=== PATIENT | male | born 1960 | race African-American/Black ===

== ENCOUNTER 2019-07-24 19:04 | Inpatient (IN) | payer BC ==
[~2019-07-24] VITALS: Ht 160 cm; Wt 59.9 kg
--- NOTE | 2019-07-24 19:16 | NUR ---
Pt brought in by ambulance. pt awake, tracks with eyes, nonverbal. [facility] staff states that patient has had cough and congestion for approx 3 days. Staff states non-verbal is normal mentation for patient. Pt Has been afebrile, no nausea, vomiting, diarrhea, no shortness of breath or chest pain. Pt resting comfortably in ED bed, no acute distress at this time.
--- NOTE | 2019-07-24 19:16 | NUR ---
Patient to ER bed 01 to gown for evaluation. Side rails up.
[2019-07-24 19:17] VITALS: BP_SYST 114
--- NOTE | 2019-07-24 20:40 | NUR ---
ER at bedside examining patient.
[2019-07-24] MEDS ORDERED: NACL 0.9% 1,000 ML IV ONE (20:56)
[2019-07-24 21:20] LABS: BASOPHILS % (AUTO) 0.8 % (0.0-2.0); EOSINOPHILS # (AUTO) 0.2 K/uL (0.0-0.4); HEMATOCRIT 41.2 % (36-54); HEMOGLOBIN 13.3 g/dL (14.0-18.0); LYMPHOCYTES # (AUTO) 2.1 K/uL (1.0-5.5); LYMPHOCYTES % (AUTO) 39.7 % (20.5-51.5); MEAN CORPUSCULAR HEMOGLOBIN 30 pg (27-31); MEAN CORPUSCULAR HGB CONC 32 % (32-36); MEAN CORPUSCULAR VOLUME 93 fL (79.0-98.0); MONOCYTES # (AUTO) 0.5 K/uL (0.0-1.0); MONOCYTES % (AUTO) 9.6 % (1.7-9.3); NEUTROPHILS # (AUTO) 2.5 K/uL (1.8-7.7); NEUTROPHILS % (AUTO) 46.9 % (40.0-70.0); PLATELET COUNT (AUTO) 300 K/uL (130-430); RED BLOOD CELL COUNT(AUTO) 4.42 MIL/uL (4.2-6.2); RED CELL DISTRIBUTION WIDTH 13.7 % (9.0-15.0); WHITE BLOOD COUNT (AUTO) 5.3 K/uL (4.8-10.8)
--- NOTE | 2019-07-24 21:30 | NUR ---
Pt resting in ED bed comfortably. No acute distress noted.
[2019-07-24 21:53] LABS: INR 3.6 (0.80-1.20)
[2019-07-24 22:19] LABS: CALCIUM 8.9 mg/dL (8.4-11.0); CREATININE 0.62 mg/dL (0.55-1.30); POTASSIUM 3.6 mmol/L (3.5-5.1)
[2019-07-24 22:25] LABS: ALBUMIN 3.2 g/dL (3.4-4.8); TOTAL BILIRUBIN 0.3 mg/dL (0.0-1.0)
--- NOTE | 2019-07-24 23:05 | NUR ---
# 16 FR In and Out catheter with use of sterile technique. Immediate return of 10 ml Dark brown urine noted. Urine sample collected and sent to lab. Pt tolerated procedure well. Patient unable to toilet self.
[2019-07-25 00:27] LABS: BILIRUBIN,URINE 1+ (NEGATIVE); BLOOD, URINE 3+ (NEGATIVE); CLARITY/URINE CLEAR (CLEAR); COLOR,URINE YELLOW (YELLOW); GLUCOSE,URINE NEGATIVE (NEGATIVE); KETONES,URINE NEGATIVE (NEGATIVE); LEUKOCYTE ESTERASE ,URINE NEGATIVE (NEGATIVE); NITRITE, URINE NEGATIVE (NEGATIVE); PH,URINE 5.5 (5.0-8.0); PROTEIN URINE 1+ (NEGATIVE)
[2019-07-25] MEDS ORDERED: MULT-1100 PO (00:27)
[2019-07-25] MEDS ORDERED: SENN8.6T19 PO (00:28)
[2019-07-25] MEDS ORDERED: WARF1TAB2 PO (00:31)
[2019-07-25] MEDS ORDERED: [UNRECOGNIZED DRUG - CODE] PO (00:34)
[2019-07-25 00:38] LABS: BACTERIA,URINE FEW /HPF (None Seen); RBC,URINE 50-80 /HPF (0-3); WBC,URINE 50-80 /HPF (0-3)
--- NOTE | 2019-07-25 00:48 | NUR ---
Pt resting in ED bed comfortably. No acute distress.
--- NOTE | 2019-07-25 01:33 | NUR ---
Pt Resting in ED bed. bedside re-examining the patient
--- NOTE | 2019-07-25 02:00 | NUR ---
Pt resting in ED bed. No acute distress.
--- NOTE | 2019-07-25 04:00 | NUR ---
Pt taken to CT for head CT w\o contrast
--- NOTE | 2019-07-25 04:15 | NUR ---
Pt returned from CT
--- NOTE | 2019-07-25 04:22 | NUR ---
Patient will be admitted to care of . Admitted to M/S unit. Will go to room 103A. Belongings list completed. Complete and up to date summary report printed. SBAR report to be given at bedside with opportunity for questions.
--- NOTE | 2019-07-25 04:22 | NUR ---
Transfer to [facility]. IV present no sign or symptom of infiltration.
[2019-07-25 05:00] VITALS: BP_SYST 111
--- NOTE | 2019-07-25 05:00 | NUR ---
ADMISSION PHYSICAL ASSESSMENT NOTES; pt. admitted from ER ( from SNF) for cough and congestion x 4 days. DX UTI/Possible TIA, no acute distress, on room air, O2 sat 97%, all info taken from report and med records. pt. non verbal, open eyes occasionally. pt. contracted on both upper and lower extremities but pretty stiff on BLE. skin checked, no open sore. IV lock on left wrist area. pt. has jefferson cath connected to bedside, collected urine for test from ER, told nurse Justin to leave catheter for now. maintain bed rest, bed alarm on. no family member, unable to get hold per RN.
--- NOTE | 2019-07-25 05:24 | NUR ---
CONSULTATION PAGED/CALLED Reason for Consultation: NEURO Person Who was Notified: MANJEET Consulting Physician: Clinical Trials Nurse Specialty: Ordering Physician:
[2019-07-25] MEDS: NORMAL SALINE 5 ML DISP.SYRIN IVF SCH ×3 (06:00→20:52)
--- NOTE | 2019-07-25 06:33 | NUR ---
CLOSING NOTES; pt. condition observed. pt. eyes closed. resting. will endorse to day shift. for further care and observation. unable to use call light, frequent rounds. on fall risk precautions. incomplete information on admission.
[2019-07-25 07:52] LABS: INR 3.5 (0.80-1.20); PROTHROMBIN TIME 34.8 SECS (9.5-12.5)
[2019-07-25 08:00] VITALS: BP_SYST 109
--- NOTE | 2019-07-25 08:00 | NUR ---
Note Pt resting in bed with eyes closed. Opens eyes with light stimuli, no tracking observed at this time. IV in left wrist intact and patent. No SOB/resp distress or pain/discomfort noted at this time. Call light within reach. Pt's upper and lower extremities are contacted and stiff. Pt next to nurses' station for close observation.
[2019-07-25] MEDS: cefTRIAXone 1 GM in D5W 50 ML IV SCH (08:54)
--- NOTE | 2019-07-25 09:00 | NUR ---
Note Pt was assisted with his breakfast - mechanical soft diet. Pt's HOB was raised to 90'. Pt's IVPB antibiotic started at this time on left wrist IV site. No needs noted.
--- NOTE | 2019-07-25 09:35 | NUR ---
Nutrition Update Andrey Scale 9 noted. Pt admitted for UTI, r/o stroke. Diet: mechanical soft BMI: 23.6 kg/m2 RD to follow per nutrition care standards.
--- NOTE | 2019-07-25 11:50 | NUR ---
Note Pt resting in bed with eyes closed all shift. IV in left wrist intact and patent. No needs noted at this time. Frequent rounds done (q1' and PRN) for needs and care. Pt next to nurses' station for close observation for needs and care.
[2019-07-25 12:16] VITALS: BP_SYST 117
--- NOTE | 2019-07-25 14:19 | NUR ---
Wound Evaluation: Wound Consult ordered for Low Andrey Score. Patient evaluated for a low Andrey score of 9. Patient was awake, non-verbal, non-responsive to verbal commands, and received in a [place] Bed with an Isoflex DELLA mattress. Patient needs to be turned in bed. Recommend reposition patient every 2 hours with pillow support. Elevate, off-load and float bilateral heels with pillows. Offload pressure areas with pillows for pressure re-distribution. Perform skin care and monitor skin integrity Q shift. Use moisture barrier cream on moisture susceptible areas QID and PRN for soiling. Initiate low air-loss therapy.
--- NOTE | 2019-07-25 16:05 | NUR ---
Note Pt was evaluated by speech therapist for swallow evaluation. Pt did not pass. Pt to be kept NPO from this time on, till further time.
[2019-07-25 16:19] VITALS: BP_SYST 98
--- NOTE | 2019-07-25 16:19 | NUR ---
S.T. SWALLOW EVAL SWALLOW EVAL COMPLETED. PT PRESENTS W/ MOD-SEV PRE-ORAL, ORAL, AND PHARYNGEAL DYSPHAGIA W/ DECREASED BOLUS AWARENESS/NURSE BEHAVIORAL HEALTH [facility] AT TIMES, IMPAIRED BOLUS MANIPULATION AND TRANSFER, SEV DELAYED OR ABSENT SWALLOW INITIATION. PT IS AT HIGH RISK FOR ASPIRATION, MALNUTRITION, AND DEHYDRATION. REC: NPO - ALTERNATIVE METHOD FOR FEEDING. NURSE JOZEF NOTIFIED.
--- NOTE | 2019-07-25 18:20 | NUR ---
Note Pt resting in bed. Pt near nurses' station for close observation for needs and care. IV in left wrist intact and patent. Pt was checked on q1' and PRN all shift for needs and care. No needs noted at this time. No SOB/resp distress or pain/discomfort noted all shift. Pt had no coughing all shift. Lower extremities elevated. Call light within reach. Pt has been non verbal all shift.
[2019-07-25 19:00] VITALS: BP_SYST 144
[2019-07-25] MEDS ORDERED: cefTRIAXone 1 GM in D5W 50 ML IV SCH (19:00)
--- NOTE | 2019-07-25 19:15 | NUR ---
change of shift.pt.presents quiescent affect;calm,resting.pt.presents neuro posturing:decorticate.pt.presents affect; blunt;flat. pt.presents asphasic speech status:no verbal response.pt.presents iv access intact;patent;iv lock.call light/ telephone w/in reach of the pt.
[2019-07-25 20:00] VITALS: BP_SYST 134; BP_SYST 144
--- NOTE | 2019-07-25 20:00 | NUR ---
pt.assessed.v/s assessed;values w/in normal limits.per flacc pain mgx.pt absent facial grimaces/body posturing.pt.assessed for cleanliness.pt.repositioned.pt.submitted to swallow eval:07/25/19.failed the study.speech recommended nop.diet status ordered:npo. to be paged re;npo diet status/no active iv fluids.general status stable.respiratory status stable;unlabored; 02-sat%=96%@room air.call light/telephone placed w/in reach of the pt.
[2019-07-25] MEDS: SENNOSIDES 8.6 MG TABLET PO SCH (20:48)
--- NOTE | 2019-07-25 21:00 | NUR ---
retuened the page.i re-iterated to the drMelthe speech results:failed diet status npo;no active iv fluids. ordered; iv fluids;maintance;d5/45ns@60ml/hr.;gi consult;peg plalcement;satureday;07/26/19.
[2019-07-25] MEDS: D5/0.45 NS 1,000 ML IV SCH (21:53)
--- NOTE | 2019-07-25 22:00 | NUR ---
pt.assessed.pt.assessed for cleanliness.pt repositioned.i have initiated the administration iv fluids;d5/454ns.via peripheral line. general status stable.respiratory status stable.call light/telephone placed w/in reach of the pt.
--- NOTE | 2019-07-26 | NUR ---
pt.assessed.v/s assessed;values w/in normal limits.pt.assessed for cleanliness.pt.repositioned.iv acces intact;patent iv fluids infusing. per flacc;pain mgx;pt.absent facial grimaces/body posturing.general status stable.respiratory status stable.unlabored:02- sat% =96%.call light/telephone placed w/in reach of the pt.
[2019-07-26 01:04] VITALS: BP_SYST 114
--- NOTE | 2019-07-26 02:00 | NUR ---
pt.assessed.pt.presents quiescent affect;calm,somnolent.pt.assessed for cleanliness.pt.repositioned.iv access intact;patent; iv fluids infusing.general status stable.respiratory status stable.per flacc:pain mgx;pt.absent facial grimaces/body posturing. call light/telephone placed w/in reach of the pt.
--- NOTE | 2019-07-26 04:00 | NUR ---
pt.assessed.pt.presents quiescent affect;calm,,somnolent.pt.assessed for cleanliness.pt.repositioned.per flacc pain mgx; pt.absent facial grimaces/body posturing.iv access intact;patent;general status stable.respiratory status stable.unlabored;02-sat%= 96%.call light/telephone placed w/in reach of the pt.
--- NOTE | 2019-07-26 04:45 | NUR ---
Consultation Paged Reason for consultation: UTI Was consult called: Y Person who was notified: Eva Consulting Physician: Dr. Kennedy Dukes Dialysis Tech Ordering Physician: Dr. Bauer Face Sheet was faxed to [phone].
--- NOTE | 2019-07-26 04:47 | NUR ---
Consultation Paged Reason for consultation: npo: peg placement Was consult called: Y Person who was notified: Eva Consulting Physician: Dr. Ocampo (Dr. Barclay is congressional aide) Room Cooler Installer Ordering Physician: Dr. Bauer
[2019-07-26] MEDS: NORMAL SALINE 5 ML DISP.SYRIN IVF SCH ×3 (05:45→22:00)
--- NOTE | 2019-07-26 06:06 | NUR ---
pt.assessed.pt.assessed for cleanliness.pt.repositioned.per flacc;pain mgx;pt.absent facial grimaces/body posturing. iv access intact;patent:iv fluids infusing.jefferson/leg bag intact;patent;urine content present.general status stable. respiratory status stable;unlabored;02-sat%=96%.call light/telephone placed w/in reach of t pt.
[2019-07-26 07:11] LABS: BASOPHILS % (AUTO) 0.7 % (0.0-2.0); EOSINOPHILS # (AUTO) 0.1 K/uL (0.0-0.4); EOSINOPHILS % (AUTO) 3.7 % (0.0-4.0); HEMATOCRIT 37.6 % (36-54); HEMOGLOBIN 12.2 g/dL (14.0-18.0); LYMPHOCYTES # (AUTO) 1.7 K/uL (1.0-5.5); MEAN CORPUSCULAR HEMOGLOBIN 30 pg (27-31); MEAN CORPUSCULAR HGB CONC 32 % (32-36); MEAN CORPUSCULAR VOLUME 94 fL (79.0-98.0); MONOCYTES # (AUTO) 0.4 K/uL (0.0-1.0); MONOCYTES % (AUTO) 10.2 % (1.7-9.3); NEUTROPHILS # (AUTO) 1.4 K/uL (1.8-7.7); NEUTROPHILS % (AUTO) 39.4 % (40.0-70.0); PLATELET COUNT (AUTO) 259 K/uL (130-430); RED BLOOD CELL COUNT(AUTO) 4.01 MIL/uL (4.2-6.2); RED CELL DISTRIBUTION WIDTH 13.7 % (9.0-15.0); WHITE BLOOD COUNT (AUTO) 3.6 K/uL (4.8-10.8)
[2019-07-26 07:31] LABS: ALBUMIN 2.8 g/dL (3.4-4.8); CALCIUM 8.5 mg/dL (8.4-11.0); CREATININE 0.59 mg/dL (0.55-1.30); POTASSIUM 3.4 mmol/L (3.5-5.1); TOTAL BILIRUBIN 0.4 mg/dL (0.0-1.0)
[2019-07-26 07:52] VITALS: BP_SYST 102
--- NOTE | 2019-07-26 08:00 | NUR ---
Note Pt resting in bed, no SOB/resp distress or pain/discomfort was noted. Pt's Campos catheter intact and patent draining well. IV in left wrist intact and patent infusing IVF's well. Pt next to nurses' station for close observation for needs and care. Call light within reach.
[2019-07-26] MEDS: SENNOSIDES 8.6 MG TABLET PO SCH ×2 (08:35→21:00)
[2019-07-26] MEDS: cefTRIAXone 1 GM in D5W 50 ML IV SCH (08:36)
--- NOTE | 2019-07-26 11:00 | NUR ---
Note Pt resting in bed. No needs noted at this time. Dr Chinchilla (GI) came this morning at 0735am and assessment completed at this time. Possible PEG to be done once consent is signed. Pt next to nurses' station for close observation. Call light within reach.
[2019-07-26 12:42] VITALS: BP_SYST 100
--- NOTE | 2019-07-26 12:55 | NUR ---
Note Pt resting in bed, no coughing noted at this time. IVF's infusing well. No needs noted.
[2019-07-26] MEDS: D5/0.45 NS 1,000 ML IV SCH (14:56)
--- NOTE | 2019-07-26 15:05 | NUR ---
Note Pt resting in bed. No needs noted. IVF's infusing well at this time. Campos Catheter intact and draining well. Call light within reach.
--- NOTE | 2019-07-26 15:58 | NUR ---
Dietitian Recommendations * If/when pt has PEG placement, consider Jevity 1.5 at 45 ml/hr (goal rate), Free Water Flush: 175 ml Q6h via GT Provides: 1620 kcal/day, 69 gm protein/day, and 1521 ml free water/day Meets: 108% of lower end of estimated caloric needs and 115% of upper end of estimated protein needs LP, RD Please refer to Nutrition Assessment for details. Addendum: 07/26/19 at [address] Amended: Links added.
[2019-07-26 16:19] VITALS: BP_SYST 115
--- NOTE | 2019-07-26 18:25 | NUR ---
Note Dr Bauer on the floor doing rounds and assessment of pt. Pt was checked on q1' and PRN all shift for needs and care. IV in left wrist intact and patent infusing IVF's well. No SOB/resp distress/coughing noted all shift. No pain/discomfort was noted. Campos catheter intact and patent draining well. Call light within reach. Pt non verbal and contracted, rounds done q1' and frequently. Pt next to nurses' station all shift for close observation for needs and care.
[2019-07-26 18:55] LABS: BASOPHILS % (AUTO) 0.4 % (0.0-2.0); EOSINOPHILS # (AUTO) 0.1 K/uL (0.0-0.4); EOSINOPHILS % (AUTO) 1.4 % (0.0-4.0); HEMATOCRIT 40.3 % (36-54); LYMPHOCYTES # (AUTO) 1.9 K/uL (1.0-5.5); MEAN CORPUSCULAR HEMOGLOBIN 30 pg (27-31); MEAN CORPUSCULAR HGB CONC 32 % (32-36); MEAN CORPUSCULAR VOLUME 93 fL (79.0-98.0); MONOCYTES # (AUTO) 0.4 K/uL (0.0-1.0); MONOCYTES % (AUTO) 8.6 % (1.7-9.3); NEUTROPHILS # (AUTO) 2.6 K/uL (1.8-7.7); NEUTROPHILS % (AUTO) 51.6 % (40.0-70.0); PLATELET COUNT (AUTO) 291 K/uL (130-430); RED BLOOD CELL COUNT(AUTO) 4.33 MIL/uL (4.2-6.2); RED CELL DISTRIBUTION WIDTH 13.4 % (9.0-15.0); WHITE BLOOD COUNT (AUTO) 5.1 K/uL (4.8-10.8)
[2019-07-26 19:10] LABS: BILIRUBIN,DIRECT 0.1 mg/dL (0.0-0.3); TOTAL BILIRUBIN 0.5 mg/dL (0.0-1.0)
--- NOTE | 2019-07-26 19:45 | NUR ---
AWAKE NON VERBAL ON SEMI FOWLERS POSITION.TOTAL CARE.NOTED BILATERAL UPPER & LOWER EXTREMITIES CONTRACTED. NO FACIAL GRIMACING NOTED.BATES CATH DRAINING CLEAR YELLOW URINE.IVF D5 1/2NS @ 60 ML/HR INFUSING WELL.CALL LIGHT WITHIN REACH.
[2019-07-26 20:00] VITALS: BP_SYST 131
--- NOTE | 2019-07-26 21:00 | NUR ---
DUE MEDS NOT ADM PT NPO.
--- NOTE | 2019-07-26 22:00 | NUR ---
REPOSITION BY TOOL TURRET LATHE SET UP OPERATOR.
--- NOTE | 2019-07-27 | NUR ---
V/S STABLE .AFEBRILE.REPOSITIONED.
[2019-07-27 00:42] VITALS: BP_SYST 126; BP_SYST 134
--- NOTE | 2019-07-27 02:00 | NUR ---
RESTING COMFORTABLY IN NO ACUTE DISTRESS.
--- NOTE | 2019-07-27 04:00 | NUR ---
RESTING COMFORTABLY IN NO ACUTE DISTRESS.
--- NOTE | 2019-07-27 05:00 | NUR ---
AM CARE DONE WITH PHOTOGRAPHER LITHOGRAPHIC & REPOSITIONED.
--- NOTE | 2019-07-27 06:45 | NUR ---
ENDORSED IN NO ACUTE DISTRESS.IVF INFUSING WELL.
[2019-07-27 08:00] VITALS: BP_SYST 109
--- NOTE | 2019-07-27 08:00 | NUR ---
RN OPENING NOTE PATIENT IS RESTING IN BED, OPEN EYES BUT NONE VERBAL. FLACC SCALE SHOWS PATIENT IN NO PAIN. BED AT LOW POSITION AND CALL LIGHT WITHIN REACH, PATIENT WAS ASSESSED, VITAL SIGNS ARE STABLE WILL CONTINUE TO MONITOR
[2019-07-27] MEDS ORDERED: CEFAZOLIN 1 GM IVPB PREMIX 50 ML IV ONE (08:30)
[2019-07-27] MEDS: cefTRIAXone 1 GM in D5W 50 ML IV SCH (09:26)
[2019-07-27] MEDS: SENNOSIDES 8.6 MG TABLET PO SCH ×2 (09:26→21:00)
[2019-07-27] MEDS: D5/0.45 NS 1,000 ML IV SCH (09:27)
[2019-07-27] MEDS: NORMAL SALINE 5 ML DISP.SYRIN IVF SCH ×3 (09:27→22:00)
--- NOTE | 2019-07-27 10:00 | NUR ---
RN NOTE PATIENT WAS REPOSITIONED
[2019-07-27 12:00] VITALS: BP_SYST 104
--- NOTE | 2019-07-27 12:00 | NUR ---
RN NOTE PATIENT WAS REPOSITIONED
--- NOTE | 2019-07-27 14:00 | NUR ---
RN NOTE PATIENT WAS EDUCATED ABOUT FALL PREVENTION AND HIS DISEASE PROCESS. PATIENT IS INCOHERENT, REINFORCEMENT OF TEACHING IS NEEDED WHEN THE PATIENT RECOVERS
--- NOTE | 2019-07-27 14:51 | NUR ---
RN NOTE COULD N'T REACH PATIENT'S CONSERVATOR TO GIVE A CONSENT FOR THE PEG PLACEMENT IN AM , CONTACTED THE CHARGE NURSE JEFFRY THAT TOLD ME TO ORDER A SOCIAL SERVICE CONSULT. TO FIND THE PATIENT'S CONSERVATOR. SINCE i'M NOT FAMILIAR WITH THE ORDER SET. i ASKED THE HELP OF JENNIFER AND SHE HELPED ME PUTTING THE ORDER.
[2019-07-27 16:00] VITALS: BP_SYST 112
--- NOTE | 2019-07-27 18:00 | NUR ---
RN CLOSING NOTE PATIENT WAS REPOSITIONED IN BED, COULDN'T GET THE CONSERVATOR TO SIGN THE CONSENT FOR PEG PLACEMENT FOR TOMORROW. CHARGE NURSE IS AWARE AND WILL ENDORSE TO NEXT SHIFT.
--- NOTE | 2019-07-27 19:05 | NUR ---
OPENING NOTES RECEIVED PATIENT IN BED AWAKE NONVERBAL. BREATHING UNLABORED ON ROOM AIR. IVF INFUSING WITH IV LINE INTACT AND PATENT. BED IN LOWEST LOCKED POSITION WITH ALARM ON.
[2019-07-27 20:48] VITALS: BP_SYST 106
--- NOTE | 2019-07-27 22:00 | NUR ---
ROUNDS PATIENT AWAKE NO DISTRESS NOTED. VITAL SIGNS STABLE.
--- NOTE | 2019-07-28 00:30 | NUR ---
ROUNDS CONDITION UNCHANGED.
[2019-07-28 01:19] VITALS: BP_SYST 99
[2019-07-28] MEDS: D5/0.45 NS 1,000 ML IV SCH ×2 (02:30→15:35)
--- NOTE | 2019-07-28 02:39 | NUR ---
ROUNDS BREATHING UNLABORED ON ROOM AIR. IVF INFUSING.
--- NOTE | 2019-07-28 05:22 | NUR ---
AM CARE PATIENT HAD SMALL BM. INCONTINENCE CARE DONE. LINENS CHANGED.
[2019-07-28] MEDS: NORMAL SALINE 5 ML DISP.SYRIN IVF SCH ×3 (06:00→22:00)
--- NOTE | 2019-07-28 06:36 | NUR ---
CLOSING NOTES PATIENT NEEDS ATTENDED. KEPT NPO FOR POSSIBLE PEG WHEN CONSENT AVAILABLE. IVF INFUSING WITH IV LINE INTACT AND PATENT.
[2019-07-28 07:49] VITALS: BP_SYST 117
[2019-07-28 08:16] LABS: INR > 9.0 (0.80-1.20); PROTHROMBIN TIME > 90.0 SECS (9.5-12.5)
[2019-07-28] MEDS: SENNOSIDES 8.6 MG TABLET PO SCH ×2 (09:00→22:00)
[2019-07-28] MEDS: cefTRIAXone 1 GM in D5W 50 ML IV SCH (09:03)
[2019-07-28 13:12] VITALS: BP_SYST 106
--- NOTE | 2019-07-28 14:38 | NUR ---
Saturator- complete a DCPA METAL CAN INSPECTOR went to see pt. Pt. is not able to communicate and will not be participating in this interview. Pt. is non-verbal and as per Dr. garza notes, pt.has history of Dementia, Major depressive disorder, Psychosis, Parkinson's disease, General muscle weakness, Contractures of both knees, Chronic embolism and DVT. METAL CAN INSPECTOR will contact facility, [facility] where pt. came from, to complete a DCPA, find out how long pt. has been there, who is pts. conservator and if he has any family/friends that are involved in his care or visit him. Addendum: 07/28/19 at 1501 by Juliet Andre METAL CAN INSPECTOR Saturator follow up METAL CAN INSPECTOR spoke to Research And Development ResearcherRn. Kedar Polanco at pts. facility from which he came from, [facility] at [phone]. Juan C was able to answer questions pertaining to a DCPA. He stated pt. has been at this facility since, 08-22-12. When pt. need any medical procedures, they have to go through a bio-ethics committee as pt. has no friends and no family involvement. Christie Thacker stated the bioethics committee met on 07/27 re. this pt. and the need for a peg. He stated they agreed. Dr. Bauer and Dr. Benavides sit in on the committee. Christie Thacker agreed to fax over this paper he is referring to and also stated he spoke to Christie ervin at [facility]. METAL CAN INSPECTOR a fax number. METAL CAN INSPECTOR called and spoke to [facility] Christie Zendejas x [phone]. He stated he was aware of Dr. Bauer and Dr. Benavides signing consent, paperwork is filed. METAL CAN INSPECTOR thanked Aashish for his input. METAL CAN INSPECTOR will docuiment the MOPA and will remain available as needed.
--- NOTE | 2019-07-28 15:00 | NUR ---
Procedure consent for gastrostomy tube complete by blurb writer, Dr. Benavides and Dr. Bauer. Aashish Maria RN
[2019-07-28 16:14] VITALS: BP_SYST 103
--- NOTE | 2019-07-28 18:56 | NUR ---
Patient rounding. Opens eyes, non verbal. Even, unlabored respirations. Will endorse to night registered nurse. Aashish Maria RN
[2019-07-28 20:00] VITALS: BP_SYST 135
[2019-07-29 01:28] VITALS: BP_SYST 121
[2019-07-29 04:00] VITALS: BP_SYST 128
--- NOTE | 2019-07-29 08:00 | NUR ---
am assessment done.pt nonresponive to questions and only painful stimuli.vss resp even and unlabored.iv infusing at 60 hr.resp even and unlabored.jefferson with jeniffer urine contracted to arms.npo and awaiting peg tube placement.repositioned in bed.continue to monitor
[2019-07-29] MEDS: D5/0.45 NS 1,000 ML IV SCH (08:50)
[2019-07-29] MEDS: SENNOSIDES 8.6 MG TABLET PO SCH ×2 (09:00→20:50)
[2019-07-29] MEDS: cefTRIAXone 1 GM in D5W 50 ML IV SCH (09:00)
[2019-07-29 12:00] VITALS: BP_SYST 92
[2019-07-29] MEDS: NORMAL SALINE 5 ML DISP.SYRIN IVF SCH ×2 (14:00→20:51)
--- NOTE | 2019-07-29 15:05 | NUR ---
Nutrition F/U RD reviewed pt's current EMR record including diet Hx, physician notes, nursing notes, pertinent labs/meds/procedures, care trends, and care activity. Admission Dx: UTI, stroke PMH: dementia, depression, psychosis, Parkinson's, DVT per physician notes Current Diet Order/Nutrition Support: NPO x1 day Subjective Info: Pt seen sleeping at time of RD visit. Plans for PEG placement per EMR. Pt has been mostly NPO since admission (x5 days). Pt is at risk for malnutrition -- not currently meeting nutritional needs. Skin Integrity Comment: Andrey scale: 11; per nursing notes, erythema noted to lower sacrum Estimated Energy Expenditure (kcals/day) 1679-7428 kcal/day (25-30 kcal/kg CBW for maintenance) Estimated Protein Required (g/day) 48-60 gm/day (0.8-1 gm/kg CBW for maintenance) Estimated Fluid Required (l/day) 1.5-1.8 L/day (1 ml/kcal/day for maintenance) Problem/Etiology/Signs/Symptoms Inadequate nutritional intakes related to metabolic needs for maintenance as evidenced by no current nutrition support. *ongoing Expected Outcomes/Goals - Monitor provision of nutrition support w/ goal of pt meeting at least 75% of estimated nutritional needs, labs trending WNL, normal GI function, and skin integrity/wt maintenance Dietitian Recommendations * Recommend Jevity 1.5 at 45 ml/hr (goal rate), Free Water Flush: 175 ml Q6h via GT if/when medically appropriate Provides: 1620 kcal/day, 69 gm protein/day, and 1521 ml free water/day Meets: 108% of lower end of estimated caloric needs and 115% of upper end of estimated protein needs Follow Up High Risk: F/U in 2-3 days
--- NOTE | 2019-07-29 15:11 | NUR ---
Dietitian Recommendations * Recommend Jevity 1.5 at 45 ml/hr (goal rate), Free Water Flush: 175 ml Q6h via GT if/when medically appropriate Provides: 1620 kcal/day, 69 gm protein/day, and 1521 ml free water/day Meets: 108% of lower end of estimated caloric needs and 115% of upper end of estimated protein needs LP, RD Please refer to Nutrition Assessment for details.
[2019-07-29 16:13] VITALS: BP_SYST 123
[2019-07-29 20:00] VITALS: BP_SYST 103
--- NOTE | 2019-07-29 20:04 | NUR ---
patient received npo and with the same ivf on. with plan for gtube feeding to start but consent for the procedure canot be signed for no family available,and no conservatorship. Dr hong told me Dr Bauer is aware.
[2019-07-30] VITALS: BP_SYST 100
[2019-07-30] MEDS: NORMAL SALINE 5 ML DISP.SYRIN IVF SCH ×3 (05:43→21:11)
--- NOTE | 2019-07-30 07:18 | NUR ---
AM rounds: Patient opens eyes but non verbal. Breathing non labored. Contracted x4. NPO , high risk for aspiration and pending PEG placement. IV fluids of D5 1/2 NS at 60 cc/hr infusing on the left leg gauge 20. Campos catheter with yellow urine output, no sediments noted. Safety precaution maintained. Call light within reach.
[2019-07-30 08:14] VITALS: BP_SYST 118
[2019-07-30] MEDS: cefTRIAXone 1 GM in D5W 50 ML IV SCH (08:18)
[2019-07-30] MEDS: SENNOSIDES 8.6 MG TABLET PO SCH ×2 (09:00→21:00)
[2019-07-30 09:18] LABS: INR 1.8 (0.80-1.20)
--- NOTE | 2019-07-30 10:08 | NUR ---
Supervisor Sewer System: pt was discussed during bed huddle re. procedure. STORAGE BATTERY INSPECTOR gave Eliazar a copy of the Verification of informed consent that was faxd over from pts. facility where he came from, [facility] however the form is lacking a Drs. signature. STORAGE BATTERY INSPECTOR called Kedar the Shift Supervisor at [facility] who stated there were two forms, this one that he sent STORAGE BATTERY INSPECTOR and another that gives consent for the procedure. This phone connection was very poor and Christie Thacker even tried a second line to continue the conversation. STORAGE BATTERY INSPECTOR will share the second fax that Kedar is sending over this morning via fax with Eliazar. STORAGE BATTERY INSPECTOR will remain available as needed .
[2019-07-30 12:00] VITALS: BP_SYST 95
--- NOTE | 2019-07-30 12:00 | NUR ---
Rounds: Patient is asleep. No distress noted.
[2019-07-30] MEDS ORDERED: CEFAZOLIN 1 GM IVPB PREMIX 50 ML IV ONE (13:15)
--- NOTE | 2019-07-30 13:30 | NUR ---
GI rounds: Seen by Dr. Tejada, made MD aware that consent for PEG is now in the chart. New orders noted.
[2019-07-30] MEDS: D5/0.45 NS 1,000 ML IV SCH (13:59)
--- NOTE | 2019-07-30 15:57 | NUR ---
DC Barriers: pending PEG placement. Per dr. Barclay/GI note, to do PEG of INR < 1.5.
[2019-07-30 16:25] VITALS: BP_SYST 153
--- NOTE | 2019-07-30 18:01 | NUR ---
END OF SHIFT: Needs attended. No change in assessment.
--- NOTE | 2019-07-30 19:03 | NUR ---
OPENING NOTES RECEIVED PATIENT IN BED AWAKE NONVERBAL UNABLE TO COMMUNICATE NEEDS. BREATHING UNLABORED ON ROOM AIR. IVF INFUSING WITH IV LINE INTACT AND PATENT. BED IN LOWEST LOCKED POSITION WITH ALARM ON.
[2019-07-30 21:33] VITALS: BP_SYST 158
--- NOTE | 2019-07-30 22:00 | NUR ---
ROUNDS PATIENT AWAKE BREATHING UNLABORED.
[2019-07-31 00:11] VITALS: BP_SYST 112
--- NOTE | 2019-07-31 00:30 | NUR ---
ROUNDS PATIENT RESTING IN BED STILL AWAKE. NO DISTRESS NOTED. IVF INFUSING. VITAL SIGNS STABLE.
--- NOTE | 2019-07-31 03:28 | NUR ---
ROUNDS PATIENT STILL AWAKE. BREATHING CALM. IVF INFUSING WITH IV LINE INTACT.
[2019-07-31] MEDS: D5/0.45 NS 1,000 ML IV SCH ×3 (04:13→17:40)
--- NOTE | 2019-07-31 05:11 | NUR ---
AM CARE AM CARE DONE. NO BOWEL MOVEMENT. PATIENT CHUX CHANGED. APPLIED Z GUARD TO SACRAL AREA.
[2019-07-31] MEDS: NORMAL SALINE 5 ML DISP.SYRIN IVF SCH ×3 (06:00→23:05)
--- NOTE | 2019-07-31 06:18 | NUR ---
CLOSING NOTES PATIENT CONDITION UNCHANGED. IVF INFUSING WITH IV LINE INTACT. PATIENT NEEDS ATTENDED.
[2019-07-31 07:05] LABS: INR 1.9 (0.80-1.20); PROTHROMBIN TIME 18.9 SECS (9.5-12.5)
[2019-07-31 07:11] LABS: BASOPHILS % (AUTO) 0.8 % (0.0-2.0); EOSINOPHILS # (AUTO) 0.2 K/uL (0.0-0.4); EOSINOPHILS % (AUTO) 3.8 % (0.0-4.0); HEMATOCRIT 39.2 % (36-54); LYMPHOCYTES # (AUTO) 1.3 K/uL (1.0-5.5); LYMPHOCYTES % (AUTO) 29.5 % (20.5-51.5); MEAN CORPUSCULAR HEMOGLOBIN 31 pg (27-31); MEAN CORPUSCULAR HGB CONC 33 % (32-36); MEAN CORPUSCULAR VOLUME 93 fL (79.0-98.0); MONOCYTES # (AUTO) 0.4 K/uL (0.0-1.0); MONOCYTES % (AUTO) 10.1 % (1.7-9.3); NEUTROPHILS # (AUTO) 2.4 K/uL (1.8-7.7); NEUTROPHILS % (AUTO) 55.8 % (40.0-70.0); PLATELET COUNT (AUTO) 281 K/uL (130-430); RED BLOOD CELL COUNT(AUTO) 4.22 MIL/uL (4.2-6.2); RED CELL DISTRIBUTION WIDTH 13.1 % (9.0-15.0); WHITE BLOOD COUNT (AUTO) 4.3 K/uL (4.8-10.8)
[2019-07-31 07:13] LABS: CALCIUM 8.7 mg/dL (8.4-11.0); CREATININE 0.58 mg/dL (0.55-1.30)
[2019-07-31 07:19] LABS: POTASSIUM 3.2 mmol/L (3.5-5.1)
--- NOTE | 2019-07-31 07:40 | NUR ---
OPENING NOTE RECEIVED PATIENT FROM NEWSPAPER PHOTOJOURNALIST. PATIENT AWAKE IN BED. UNABLE TO MAKE NEEDS KNOWN. NONVERBAL. ROOM AIR. NO ACUTE DISTRESS. NO SOB. RESPIRATION EVEN AND UNLABORED. SKIN WARM AND DRY TO TOUCH. NOTED IV TO LEFT LEG AND LEFT HAND; INTACT. BATES CATH INTACT AND PATENT DRAINING YELLOW URINE. BED IN LOW AND LOCKED POSITION. SIDERAIL UPX3. BED ALARM ON. CALL LIGHT IN REACH. WILL CONTINUE TO MONITOR. Addendum: 07/31/19 at 0812 by Nisa Iyer RN TODAYS INR-1.9. PER PEG PLACEMENT TO BE DONE IF INR<1.5
[2019-07-31 08:07] VITALS: BP_SYST 105
[2019-07-31] MEDS ORDERED: cefTRIAXone 1 GM in D5W 50 ML IV ONE ×2 (09:00→15:00)
[2019-07-31] MEDS: SENNOSIDES 8.6 MG TABLET PO SCH ×2 (09:00→20:13)
[2019-07-31] MEDS: cefTRIAXone 1 GM in D5W 50 ML IV SCH (09:11)
[2019-07-31] MEDS ORDERED: POTASSIUM CHLORIDE 40 MEQ in NS 250 ML IV ONE (10:45)
[2019-07-31] MEDS ORDERED: PHYTONADIONE 10 MG/ML AMP SUBCUT SCH (10:45)
--- NOTE | 2019-07-31 10:46 | NUR ---
DR.ASHOK FREITAS AT [facility]. REPORTED PATIENT HAS INR 1.9, POTASSIUM 3.2 AND IV IN LOWER EXTREMITY MD ORDERED OKAY FOR IV INSERT ON LOWER EXTREMITY; VIT K 10MG SQ DAILY X2 DAYS; KRIDER 40MEQ IVPBX1; ORDER VERIFIED AND CARRIED OUT
[2019-07-31] MEDS ORDERED: PHYTONADIONE 10 MG/ML AMP ONE (11:43)
--- NOTE | 2019-07-31 11:47 | NUR ---
RECEIVED ORDER FOR PT/INR AND BMP TOMORROW TO F/U INR AND POTASSIUM; VERIFIED AND CARRIED OUT
[2019-07-31 12:00] VITALS: BP_SYST 102
--- NOTE | 2019-07-31 13:00 | NUR ---
NOTE PATIENT IS STABLE. NO S/SX PAIN/DISCOMFORT. NO ACUTE DISTRESS. ALL NEEDS MET. CONT TO MONITOR. CALL LIGHT IN REACH
[2019-07-31 16:00] VITALS: BP_SYST 104
--- NOTE | 2019-07-31 16:15 | NUR ---
ROCEPHIN IV ROCEPHIN ORDERED FOR 1500; PHARMACY AWARE AND INPUT ORDER FOR 0900 INSTEAD OF 1500 AND PHARMACY ATTEMPTED TO FIX TIME BUT WAS NOT ABLE TO
--- NOTE | 2019-07-31 16:58 | NUR ---
Wound Re-Evaluation: Wound Consult ordered for Low Andrey Score. Patient evaluated for a low Andrey score of 12. Patient was awake, non-verbal, non-responsive to verbal commands, and received in a Holt Bed with an Isoflex DELLA mattress with low air-loss therapy. Patient needs to be turned in bed. Skin assessment: 1. Buttocks: Blanchable red erythema from IAD. Recommend: Cleanse involved areas with mild soap and water. Pat dry. Apply moisture barrier cream to involved areas. Perform site care 4 times a day, and as needed for soiling. Recommend continue: Reposition patient [id number] only every 2 hours with pillow support. Elevate, off-load and float bilateral heels with pillows. Offload pressure areas with pillows for pressure re-distribution. Perform skin care and monitor skin integrity Q shift. Use moisture barrier cream on moisture susceptible areas QID and PRN for soiling. Maintain patient on low air-loss therapy.
[2019-07-31] MEDS ORDERED: CEFAZOLIN 1 GM IVPB PREMIX 50 ML IV ONE (17:00)
--- NOTE | 2019-07-31 19:00 | NUR ---
CLOSING NOTE PATIENT STABLE. AWAKE IN BED. NO ACUTE DISTRESS. NO SOB. RESPIRATION EVEN AND UNLABORED. SKIN WARM AND DRY TO TOUCH. IV INTACT AND PATENT; ISABELLE IVF. KEPT CLEAN AND DRY. ALL NEEDS MET. CALL LIGHT IN REACH. CONT TO MONITOR. ENDORSE TO KARLA SALGADO.
--- NOTE | 2019-07-31 19:15 | NUR ---
OPENING NOTES Bedside report received lying in bed, eyes closed, appears to be asleep. No s/s of acute distress noted. Breathing even and unlabored. IVF infusing well. IV site patent, no signs of infiltration or infection noted. Campos attached, secured, and draining by gravity. HOB slightly raised. Bed alarm on. Bed is locked and at lowest position. Will continue to monitor.
[2019-07-31 20:00] VITALS: BP_SYST 125
--- NOTE | 2019-07-31 20:25 | NUR ---
DISCHARGED Patient discharged and left unit at this time via wheelchair, escorted by RN. No s/s of acute distress, patient denies pain or discomfort. Vitals stable. Breathing even and unlabored. IV removed, catheter fully intact, no active bleeding noted. Wrist band identification removed. All needs met. All questions and concerns addressed by RN. Patient picked up by his brother, Erik. Addendum: 07/31/19 at 2200 by Genaro Estevez RN DISREGARD MESSAGE ABOVE. CHARTED FOR WRONG PATIENT.
--- NOTE | 2019-07-31 21:00 | NUR ---
ROUNDS Patient in bed, sleeping. No signs of discomfort noted. Chest rise and fall even bilaterally. HOB raised. IVF infusing well. Campos attached, secured, and draining by gravity. Bed alarm on. Will continue to monitor.
--- NOTE | 2019-07-31 23:00 | NUR ---
ROUNDS Patient in bed, asleep. No s/s of acute distress noted. Breathing even and unlabored. Bed alarm on. Will continue to monitor.
[2019-08-01] VITALS: BP_SYST 156
--- NOTE | 2019-08-01 01:00 | NUR ---
ROUNDS Patient in bed, sleeping. No signs of discomfort noted. IVF infusing well. Chest rise and fall even bilaterally. Bed alarm on. Will continue to monitor.
--- NOTE | 2019-08-01 03:00 | NUR ---
ROUNDS Patient sleeping at this time. No s/s of acute distress noted. Breathing even and unlabored. Bed alarm on. Will continue to monitor.
[2019-08-01] MEDS: D5/0.45 NS 1,000 ML IV SCH ×2 (03:30→16:48)
--- NOTE | 2019-08-01 05:00 | NUR ---
ROUNDS Patient asleep at this time. No signs of discomfort noted. Chest rise and fall even bilaterally. IVF infusing well. Bed alarm on. Will continue to monitor.
[2019-08-01] MEDS: NORMAL SALINE 5 ML DISP.SYRIN IVF SCH ×3 (05:59→22:11)
--- NOTE | 2019-08-01 06:41 | NUR ---
CLOSING NOTES Patient in bed, asleep at this time. No s/s of acute distress noted. Breathing even and unlabored. HOB slightly raised. IVF infusing well, IV site patent, no signs of infiltration or infection noted. Campos attached, secured, and draining by gravity. All needs met throughout shift. Fall and safety precautions maintained throughout shift. Will continue to monitor until patient care is endorsed to oncoming dayshift nurse.
[2019-08-01 07:08] LABS: CALCIUM 8.6 mg/dL (8.4-11.0); CREATININE 0.5 mg/dL (0.55-1.30); POTASSIUM 3.2 mmol/L (3.5-5.1)
[2019-08-01 07:14] LABS: INR 1.3 (0.80-1.20); PROTHROMBIN TIME 12.5 SECS (9.5-12.5)
[2019-08-01 07:57] VITALS: BP_SYST 136
--- NOTE | 2019-08-01 08:00 | NUR ---
Note Pt resting bed with left wrist IV intact and patent and another IV in left leg which is patent and intact infusing IVF's well. Pt near nurses' station for close observation for needs and care. No SOB/resp distress or pain/discomfort noted at this time. No needs noted at this time. Call light within reach.
[2019-08-01] MEDS: SENNOSIDES 8.6 MG TABLET PO SCH ×2 (08:36→20:40)
[2019-08-01] MEDS: cefTRIAXone 1 GM in D5W 50 ML IV SCH (08:41)
[2019-08-01] MEDS ORDERED: fentaNYL CITRATE/PF 100 MCG/2 ML AMP ONE (09:54)
[2019-08-01] MEDS ORDERED: SIMETHICONE 40 MG/0.6 ML ML ONE (09:55)
[2019-08-01] MEDS ORDERED: MIDAZOLAM HCL 5 MG/5 ML VIAL ONE (09:55)
[2019-08-01] MEDS ORDERED: PHYTONADIONE 10 MG/ML AMP SUBCUT ONE (11:45)
[2019-08-01 13:15] VITALS: BP_SYST 114
--- NOTE | 2019-08-01 13:15 | NUR ---
Note Pt was taken to GI lab via bed for PEG placement at 1045am. Pt returned to floor at this time - in room. Pt's EGD was negative. Unable to insert PEG as pt is too muscular and stomach is behind ribs. PEG has to be inserted surgically. Surgical consult to be ordered per Dr Chinchilla. Pt stable and resting in bed at this time. IVF's reconnected. No needs noted. Campos catheter intact and draining well all shift. IV in left leg intact and patent infusing IVF's well. Call light within reach. No needs noted. No SOB/resp distress or pain/discomfort noted
--- NOTE | 2019-08-01 13:57 | NUR ---
Discharge Planning: DCP faxed pt referral to [facility] (f [phone] p [phone]) DCP follow up. Addendum: 08/01/19 at 1711 by Sabina Magaña DP Tushar Gibbons (C [phone]) at [facility] (f [phone] p [phone]) reviewing need to get auth please call jean prior to discharging.
--- NOTE | 2019-08-01 16:15 | NUR ---
Note Pt resting in bed. No needs noted at this time. Pt checked on q1' and PRN all shift for needs and care. Call light within reach.
[2019-08-01 16:57] VITALS: BP_SYST 100
--- NOTE | 2019-08-01 18:05 | NUR ---
NOTE Pt resting in bed with IVF's infusing through left leg IV site. IV in left wrist intact and patent. No SOB/resp distress or pain/discomfort noted. Pt was checked on q1' and PRN all shift for needs and care. Pt was maintained with safety precautions all shift. No needs noted at this time. Call light within reach.
--- NOTE | 2019-08-01 19:20 | NUR ---
OPENING NOTE RECEIVED REPORT FROM SHANNAN RN, PATIENT IS RESTING IN BED, AWAKE, PATIENT IS NONVERBAL, REORIENTED PATIENT TO PERSON, PLACE, TIME, AND EVENT, NO SIGNS OF ACUTE DISTRESS, EVEN AND UNLABORED BREATHING ON ROOM AIR, IV TO LEFT HAND INTACT AND IV TO LEFT FOOT INTACT, IV FLUIDS INFUSING WELL TO LEFT FOOT PER MD ORDER, BATES CATHETER DRAINING TO GRAVITY. SAFETY, FALL, AND ASPIRATION PRECAUTIONS IN PLACE, PATIENT IS NPO, HOB ELEVATED, BED LOCKED AND IN LOWEST POSITION, BED ALARM ON, THREE SIDE RAILS UP, CALL LIGHT WITH PATIENT, WILL CONTINUE TO MONITOR.
[2019-08-01 20:00] VITALS: BP_SYST 99
--- NOTE | 2019-08-01 20:41 | NUR ---
DR. COLEMAN ROUNDS DR. COLEMAN AT BEDSIDE, MADE AWARE OF PATIENT'S STATUS, NEW ORDERS GIVEN TO HAVE DR. CAGLE CONSULT FOR SURGICAL G-TUBE PLACEMENT, RN TO INPUT.
--- NOTE | 2019-08-01 22:11 | NUR ---
RN ROUNDS PATIENT IS RESTING IN BED, AWAKE, EVEN AND UNLABORED BREATHING ON ROOM AIR, NO SIGNS OF ACUTE DISTRESS, NS FLUSH WITH 5ML PER MD ORDER, PATIENT TOLERATED WELL, IV TO LEFT HAND INTACT AND IV TO LEFT FOOT INTACT, IV FLUIDS INFUSING WELL TO LEFT FOOT PER MD ORDER, PATENT/BENIGN, BATES CATHETER DRAINING TO GRAVITY. SAFETY, FALL, AND ASPIRATION PRECAUTIONS IN PLACE, CALL LIGHT WITH PATIENT, WILL CONTINUE TO MONITOR.
--- NOTE | 2019-08-02 00:02 | NUR ---
RN ROUNDS PATIENT IS RESTING IN BED, EYES CLOSED ASLEEP, TOLERATING ROOM AIR, NO SIGNS OF ACUTE DISTRESS, IV TO LEFT HAND INTACT AND IV TO LEFT FOOT INTACT, IV FLUIDS INFUSING WELL, PATENT/BENIGN, BATES CATHETER DRAINING TO GRAVITY. SAFETY, FALL, AND ASPIRATION PRECAUTIONS IN PLACE, CALL LIGHT WITH PATIENT, WILL CONTINUE TO MONITOR.
[2019-08-02 00:57] VITALS: BP_SYST 103
--- NOTE | 2019-08-02 02:06 | NUR ---
RN ROUNDS PATIENT IS RESTING IN BED, EYES CLOSED ASLEEP, TOLERATING ROOM AIR GOOD CHEST RISE AND FALL, IV SITES INTACT, IV FLUIDS INFUSING WELL, PATENT/BENIGN, BATES CATHETER DRAINING TO GRAVITY. SAFETY, ASPIRATION AND FALL PRECAUTIONS IN PLACE, CALL LIGHT WITH PATIENT, WILL CONTINUE TO MONITOR.
--- NOTE | 2019-08-02 04:23 | NUR ---
RN ROUNDS PATIENT IS RESTING IN BED, EYES CLOSED ASLEEP, TOLERATING ROOM AIR, IV SITES INTACT, IV FLUIDS INFUSING WELL TO LEFT LEG, BATES CATHETER DRAINING TO GRAVITY. SAFETY, ASPIRATION AND FALL PRECAUTIONS IN PLACE, CALL LIGHT WITH PATIENT, WILL CONTINUE TO MONITOR.
[2019-08-02] MEDS: NORMAL SALINE 5 ML DISP.SYRIN IVF SCH ×3 (05:26→22:00)
--- NOTE | 2019-08-02 06:52 | NUR ---
CLOSING NOTE PATIENT IS RESTING IN BED, EYES CLOSED ASLEEP, PATIENT IS NONVERBAL, NO SIGNS OF ACUTE DISTRESS, EVEN AND UNLABORED BREATHING ON ROOM AIR, IV TO LEFT HAND INTACT AND IV TO LEFT FOOT INTACT, IV FLUIDS INFUSING WELL TO LEFT FOOT, BATES CATHETER DRAINING TO GRAVITY. SAFETY, FALL, AND ASPIRATION PRECAUTIONS IN PLACE, PATIENT IS NPO, HOB ELEVATED, BED LOCKED AND IN LOWEST POSITION, BED ALARM ON, THREE SIDE RAILS UP, CALL LIGHT WITH PATIENT, WILL ENDORSE CARE TO DAYSHIFT RN.
--- NOTE | 2019-08-02 08:00 | NUR ---
RN INITIAL NOTES RECEIVED PATIENT IN BED ASLEEP , NON VERBAL, NO DISTRESS, SATING 100%, RESP EVEN AND UNLABORED, AWAITING FOR SURGEON TO COME SEE PATIENT FOR PLAN OF SURGICALLY PEG PLACEMENT , ENDORSED SHOWROOM EXECUTIVE DIRECTOR CALLED THE SURGEON ALREADY FOR CONSULT, MAINTAINED NPO FOR NOW PO MEDS NOT GIVEN , PATIENT IVF CHANGED TO LEFT LEFT HAND , LEFT LEG IV KEEP HL.
[2019-08-02 08:45] VITALS: BP_SYST 101
[2019-08-02] MEDS: SENNOSIDES 8.6 MG TABLET PO SCH ×2 (09:00→21:00)
[2019-08-02] MEDS: cefTRIAXone 1 GM in D5W 50 ML IV SCH (09:16)
[2019-08-02] MEDS: D5/0.45 NS 1,000 ML IV SCH (09:39)
--- NOTE | 2019-08-02 10:00 | NUR ---
ROUNDS PATIENT SLEEPING NO DISTRESS MAINTAINED NPO
[2019-08-02 12:00] VITALS: BP_SYST 133
--- NOTE | 2019-08-02 12:00 | NUR ---
ROUNDS ASLEEP ,NO DISTRESS
--- NOTE | 2019-08-02 14:00 | NUR ---
DR VIRGINIA CEJA MD ROUNDS NO NEW ORDER TO FOLLOW UP WITH SURGEON
[2019-08-02 16:27] VITALS: BP_SYST 137
--- NOTE | 2019-08-02 17:03 | NUR ---
Nutrition F/U RD reviewed pt's current EMR record including diet Hx, physician notes, nursing notes, pertinent labs/meds/procedures, care trends, and care activity. Admission Dx: UTI, stroke PMH: severe dementia, depression, psychosis, Parkinson's, DVT, FTT per physician notes Current Diet Order/Nutrition Support: NPO x 8 days Subjective Info: Pt s/p EGD and attempted PEG on 08/01, referred to surgeon for G-tube placement per MD note. Awaiting PEG placement today per RN note 08/02. Anthropometrics verified via bedscale. Skin Integrity Comment: Andrey scale: 12; per nursing notes, erythema noted to lower sacrum Estimated Energy Expenditure (kcals/day) 6136-0924 kcal/day (25-30 kcal/kg CBW for maintenance) Estimated Protein Required (g/day) 48-60 gm/day (0.8-1 gm/kg CBW for maintenance) Estimated Fluid Required (l/day) 1.5-1.8 L/day (1 ml/kcal/day for maintenance) Problem/Etiology/Signs/Symptoms Inadequate nutritional intakes related to metabolic needs for maintenance as evidenced by no current nutrition support. *ongoing Expected Outcomes/Goals - Monitor provision of nutrition support w/ goal of pt meeting at least 75% of estimated nutritional needs, labs trending WNL, normal GI function, and skin integrity/wt maintenance Dietitian Recommendations * When medically feasible, recommend Jevity 1.5 at 45 ml/hr (goal rate), Free Water Flush: 175 ml Q6h via GT * Start at 10ml and adv 5-10ml Q6h as tolerated until goal rate * Provides: 1620 kcal/day, 69 gm protein/day, and 1521 ml free water/day * Meets: 108% of lower end of estimated caloric needs and 115% of upper end of estimated protein needs Follow Up High Risk: F/U in 2-3 days
--- NOTE | 2019-08-02 17:11 | NUR ---
Dietitian Recommendations * When medically feasible, recommend Jevity 1.5 at 45 ml/hr (goal rate), Free Water Flush: 175 ml Q6h via GT * Start at 10ml and adv 5-10ml Q6h as tolerated until goal rate * Provides: 1620 kcal/day, 69 gm protein/day, and 1521 ml free water/day * Meets: 108% of lower end of estimated caloric needs and 115% of upper end of estimated protein needs Please see Nutrition Follow Up for further details. LT, RD
--- NOTE | 2019-08-02 17:45 | NUR ---
DR CAGLE SURGEON INFORMED PATIENT CONDITION AND THAT GI DR CANNOT INSERT PEG TUBE D/T THE CT RESULT SHOWN , MD ORDERED TO OBTAIN CONSENT FOR EGD/PLACEMENT OF PEG /POSSIBLE OPEN GASTROSTOMY , INFORMED PATIENT IS A CONSERVATOR WILL CALL HIM ONCE WITH CONSENT
--- NOTE | 2019-08-02 18:37 | NUR ---
CONSENT FROM FACILITY CALLED FACILITY AND SPOKE WITH MONICA (STALIN)AND PER STAFF PATIENT HAS NO FAMILY/NO FRIENDS/ NO CONSERVATOR AND IF THERES A NEED FOR A CONSENT FACILITY IDT IS THE ONE RESPONSIBLE, WILL FOLLOW UP ABOUT THE CONSENT , PATIENT THIS TIME MAINTAINED NPO, PER MONICA SHE WILL COLLABORATE WITH THE FACILITY AND SHE WILL CALL ME IN AM FOR THE CONSENT ,
--- NOTE | 2019-08-02 18:48 | NUR ---
ENDORSEMENT WILL ENDORSE TO NEXT SHIFT CONT CARE . [facility]AC[facility] PEG AND POSSIBLE OPEN GASTROSTOMY AND SHE WILL DISCUSS WITH THE IDT SO THEY COULD SIGN THE CONSENT. Addendum: 08/02/19 at 1859 by Bhakti Sheriff RN ADDENDUM PATIENT ARLENE JUDD STATED THAT SHE WANTS DR ALEJO TO CALL FOR PROLIXIN 20 MG IN AM AND 10 MG AT HS TO [facility] , LEFT MESSAGE TO DR ALEJO Addendum: 08/02/19 at 1999 by Bhakti Sheriff RN THIS ADDENDUM NOTES ERROR , BELONGS TO ANOTHER PATIENT
--- NOTE | 2019-08-02 19:30 | NUR ---
ENDORSEMENT SPOKE WITH MONICA AND VERIFIED THAT IDT STILL TO SIGN NEW CONSENT FOR THE SURGICAL PROCEDURE AND PER MONICA SHE WILL GIVE IT TO THE IDT AND WILL FAX IT PROB SUNDAY , ENDORSED TO AYDIN FRY
[2019-08-02 20:00] VITALS: BP_SYST 99
--- NOTE | 2019-08-02 20:00 | NUR ---
Initial note: Received report from dayshift RN. Patient is awake in bed, non-verbal. No acute distress. Even and unlabored respirations on room air. IV site to left wrist receiving IV fluids per MD order, no infiltration at site. Left lower leg IV site saline locked patent and intact. Call light is with patient. Safety, fall, aspiration precautions in place. Will continue with plan of care.
--- NOTE | 2019-08-02 22:06 | NUR ---
Rounds: Patient is resting in bed, no acute distress. Tolerating room air. IV site patent and intact, no infiltration. Call light with patient. Will continue to monitor.
[2019-08-02 23:41] VITALS: BP_SYST 110
--- NOTE | 2019-08-03 01:17 | NUR ---
Rounds: Patient is asleep. No acute distress. Even and unlabored breathing on room air. IV site patent and intact. Call light with patient. Will continue monitoring.
--- NOTE | 2019-08-03 04:08 | NUR ---
Rounds: Patient is awake, no signs/symptoms of acute distress. Tolerating room air. IV site receiving IV fluids as ordered, no infiltration. Call light with patient. Will continue to monitor.
[2019-08-03] MEDS: D5/0.45 NS 1,000 ML IV SCH ×2 (04:09→21:11)
[2019-08-03] MEDS: NORMAL SALINE 5 ML DISP.SYRIN IVF SCH ×3 (06:00→21:10)
--- NOTE | 2019-08-03 06:48 | NUR ---
Closing note: Patient is sleeping. No acute distress. Even and unlabored breathing on room air. IV site patent and intact. All needs met. Safety, fall precautions observed. Will endorse care to dayshift RN.
[2019-08-03 08:00] VITALS: BP_SYST 106
--- NOTE | 2019-08-03 08:00 | NUR ---
RN OPENING NOTE PATIENT IS RESTING IN BED, OPEN EYES BUT NON VERBAL , PATENT WAS ASSESED, VITAL SIGNS ARE STABLE. FLACC SCALE SHOWS PATIENT IS IN NO PAIN, BED AT LOW POSITION AND CALL LIGHT WITHIN REACH, IVF IS RUNNING PRESCRIBED, WILL CONTINUE TO MONITOR.
[2019-08-03] MEDS ORDERED: PROPOFOL 200MG/ 20ML VIAL (DIPRIVAN) IV ONE (09:13)
[2019-08-03] MEDS ORDERED: LR 1,000 ML IV.SOLN IV ONE (09:13)
[2019-08-03] MEDS: SENNOSIDES 8.6 MG TABLET PO SCH ×2 (09:17→21:10)
[2019-08-03] MEDS: cefTRIAXone 1 GM in D5W 50 ML IV SCH (09:27)
--- NOTE | 2019-08-03 10:00 | NUR ---
RN NOTE PATIENT WAS GIVEN HIS MEDICATIONS AND WAS REPOSITIONED IN BED,
--- NOTE | 2019-08-03 12:00 | NUR ---
RN NOTE PATIENT'S WILL BE GOING FOR OPERATION, DR. ARIAS WELL DR. COLEMAN WILL SIGN THE CONSENT, THE CONSENT WAS WITNESSED BY ME AND LAYTON THE CHARGE NURSE.
[2019-08-03 12:30] VITALS: BP_SYST 100
[2019-08-03] MEDS ORDERED: POTASSIUM CHLORIDE 40 MEQ in NS 250 ML IV ONE (14:00)
--- NOTE | 2019-08-03 14:00 | NUR ---
RN NOTE PATIENT WAS REPOSITIOINED IN BED, AWAITING OR TO CALL FOR THE PATIENT, IVF RUNS PRESCRIBED
--- NOTE | 2019-08-03 16:00 | NUR ---
RN NOTE PATIENT WILL NOT GO FOR OR TODAY, SO PATIENT WAS REPOSITIONED, WILL CONTINUE TO MONITOR
[2019-08-03 17:09] VITALS: BP_SYST 109
--- NOTE | 2019-08-03 18:00 | NUR ---
RN NOTE PATIENT IS RESTING IN BED, PATIENT WAS REPOSITIONED, VITAL SIGNS ARE STABLE. FLACC SCALE SHOWS PATIENT IN NO PAIN, WILL CONTINUE TO MONITOR AND WILL ENDORSE TO NEXT SHIFT.
[2019-08-03 20:00] VITALS: BP_SYST 110
--- NOTE | 2019-08-03 20:00 | NUR ---
received pt in bed very contracted ,v/s and assessment done same stable ,iv infusing well via left wrist ,jefferson in place draining yellow urine,pt is confused and non verbal open eyes only ,pt npo for gtube placement in am ,pm care given repositioned made comfortable no distress noted at this time
[2019-08-03 23:43] VITALS: BP_SYST 104
[2019-08-04 04:00] VITALS: BP_SYST 110
--- NOTE | 2019-08-04 04:00 | NUR ---
am care given made comfortable ,repositioned for comfort
[2019-08-04] MEDS: NORMAL SALINE 5 ML DISP.SYRIN IVF SCH ×3 (05:06→22:00)
--- NOTE | 2019-08-04 08:00 | NUR ---
to be taken to gi to have peg tube placed jefferson cath patent vss npo
[2019-08-04] MEDS: SENNOSIDES 8.6 MG TABLET PO SCH ×2 (09:00→21:00)
[2019-08-04] MEDS ORDERED: ONDANSETRON HCL 4 MG/2 ML VIAL IVP PRN (09:30)
[2019-08-04 12:00] VITALS: BP_SYST 139
--- NOTE | 2019-08-04 12:00 | NUR ---
returned from gi and peg tube placed and abd binder on.vss to start tube fdg in 6 hrs no distress noted contracted and repositioned in bed.continue to monitor
[2019-08-04] MEDS: cefTRIAXone 1 GM in D5W 50 ML IV SCH (13:13)
[2019-08-04] MEDS: D5/0.45 NS 1,000 ML IV SCH (14:50)
[2019-08-04 16:16] VITALS: BP_SYST 139
[2019-08-04 16:28] VITALS: BP_SYST 140
--- NOTE | 2019-08-04 18:10 | NUR ---
no distress noted vss repositioned in bed to start g tube fdg jevity iv infusing at 60 hr jefferson patent with jeniffer urine.remains contracted and nonverbal continue to monitor
--- NOTE | 2019-08-04 19:21 | NUR ---
report to overnight cashier given
[2019-08-04 20:00] VITALS: BP_SYST 130
--- NOTE | 2019-08-04 20:00 | NUR ---
RECEIVED REPORT ,V/S AND ASSESSMENT DONE SAME STABLE ,IV INFUSING ,BATES IN PLACE ,PEG TUBE IN PLACE WITH JEVITY 1.5 INFUSING AT 20 CC/HR TOLERATED WELL,PM CARE GIVEN AND REPOSITIONED FOR COMFORT,NO DISTRESS NOTED AT THIS TIME
[2019-08-05 02:05] VITALS: BP_SYST 118
--- NOTE | 2019-08-05 04:00 | NUR ---
AM CARE GIVEN REPOSITION MADE COMFORTABLE
[2019-08-05] MEDS: NORMAL SALINE 5 ML DISP.SYRIN IVF SCH ×3 (05:54→21:18)
[2019-08-05] MEDS: D5/0.45 NS 1,000 ML IV SCH ×2 (05:55→12:06)
--- NOTE | 2019-08-05 07:15 | NUR ---
Handoff from Uzma Gibson RN. Patient sleeping in bed. Patient has gtube feeding running at 20ml / hour. Patient tolerated feeding throughout night per RN. Aashish Maria RN
[2019-08-05 07:59] VITALS: BP_SYST 90
[2019-08-05] MEDS: SENNOSIDES 8.6 MG TABLET PO SCH ×2 (10:19→21:18)
--- NOTE | 2019-08-05 11:09 | NUR ---
Discharge Planning: DCP spoke to Edwige at [facility] (f [phone] p [phone]) patient will be accepted. DCP faxed updated clinicals, Edwige to contact insurance for authorization. DCP to follow up.
[2019-08-05 12:00] VITALS: BP_SYST 124
--- NOTE | 2019-08-05 12:45 | NUR ---
Patient given oral care, eye care, mouth cleansing with suction, chg bath, new left lower extremity intravenous 20 gauge, g-tube cleaning. Increase rate to 40 ml per hour as no residual. Aashish Maria RN
--- NOTE | 2019-08-05 14:22 | NUR ---
Nutrition F/U RD reviewed pt's current EMR including diet Hx, physician notes, nursing notes, pertinent labs/meds/procedures, care trends and care activity. Current Nutrition Support: Jevity 1.5 at 20ml/hr, FWF 100ml Q12H via GT x 1 day Subjective information: Pt is S/P PEG yesterday, +aphasic. Per MD notes, pt is stable, afebrile, abdomen is soft and nontender and has been tolerating 20ml of feeding very well. MD's plan, once EN is tolerated, pt will be discharged back to SNF. Per EMR, last BM 08/04 x 1. Current EN regimen provides 720 kcal, 31 gm protein and 565ml free water daily which meets <50% of est needs. An increase in EN infusion rate is warranted. Roller Shop Supervisor note 07/31 reviewed: no pressure injury. Labs: 08/01: Na 132L, K 3.2L, BG 83WNL, BUN 4L, Cre 0.5L Estimated Energy Expenditure (kcals/day) 5608-5396 kcal/day (25-30 kcal/kg CBW for maintenance) Estimated Protein Required (g/day) 48-60 gm/day (0.8-1 gm/kg CBW for maintenance) Estimated Fluid Required (l/day) 1.5-1.8 L/day (1 ml/kcal/day for maintenance) Problem/Etiology/Signs/Symptoms Inadequate nutritional intakes related to metabolic needs for maintenance as evidenced by no current nutrition support. *no longer applicable Inadequate EN intake r/t current EN infusion rate AEB EN intake meets <50% of est needs. (*new) Expected Outcomes/Goals - Monitor EN intake and tolerance w/ goal of pt meeting at least 75% of estimated nutritional needs, labs trending WNL, normal GI function, and skin integrity/wt maintenance Dietitian Recommendations * Increase EN infusion rate to goal rate to meet est needs. * Recommend Jevity 1.5 at 45 ml/hr (goal rate), Free Water Flush: 175 ml Q6h via GT Provides: 1620 kcal/day, 69 gm protein/day, and 1521 ml free water/day Meets: 108% of lower end of estimated caloric needs and 115% of upper end of estimated protein needs Follow Up High Risk: F/U in 2-3 days
--- NOTE | 2019-08-05 14:29 | NUR ---
Dietitian Recommendations * Increase EN infusion rate to goal rate to meet est needs. * Recommend Jevity 1.5 at 45 ml/hr (goal rate), Free Water Flush: 175 ml Q6h via GT Provides: 1620 kcal/day, 69 gm protein/day, and 1521 ml free water/day Meets: 108% of lower end of estimated caloric needs and 115% of upper end of estimated protein needs Please see nutrition F/U LONGTERM, RD
[2019-08-05 16:07] VITALS: BP_SYST 126
--- NOTE | 2019-08-05 18:48 | NUR ---
Campos catheter care. Iv site patent. Needs met at this time. Will endorse to Uzma Sheriff RN. Aashish Maria RN
[2019-08-05 20:00] VITALS: BP_SYST 120
--- NOTE | 2019-08-05 20:00 | NUR ---
RECEIVED PT IN BED V/S AND ASSESSMENT DONE SAME STABLE ,IV INFUSING WELL ,PEG TUBE FEED INFUSING WELL ,NO DISTRESS NOTED AT THIS TIME.
--- NOTE | 2019-08-06 07:20 | NUR ---
Patient bed bound. Alert to touch. Tolerates feeding well. Residual 15ml. Patient needs met. Campos catheter care. Aashish Maria RN
[2019-08-06 08:35] VITALS: BP_SYST 106
[2019-08-06] MEDS: NORMAL SALINE 5 ML DISP.SYRIN IVF SCH ×3 (10:13→22:00)
[2019-08-06] MEDS: SENNOSIDES 8.6 MG TABLET PO SCH ×2 (10:16→21:00)
[2019-08-06] MEDS: cefTRIAXone 1 GM in D5W 50 ML IV SCH (10:19)
--- NOTE | 2019-08-06 12:00 | NUR ---
Patient is discharge pending placement. Tolerates feeding and medication with residual of tubefeeding 15ml. Aashish Maria RN
[2019-08-06 12:55] VITALS: BP_SYST 97
[2019-08-06 16:16] VITALS: BP_SYST 101
[2019-08-06] MEDS: D5/0.45 NS 1,000 ML IV SCH (18:10)
--- NOTE | 2019-08-06 18:49 | NUR ---
[facility]. CALLED AND SPOKE WITH ANNE AND HE SPOKE WITH INTAKE AND THEY SAID THEY ARE WAITING ON AUTH. FOR INSURANCE THAT MOST LIKELY WILL BE TOMORROW . CHARGE NURSE AWARE
--- NOTE | 2019-08-06 19:13 | NUR ---
Handoff with night team registered nurse, Uzma Ahumada RN. Aashish Maria RN
[2019-08-06 20:00] VITALS: BP_SYST 105
--- NOTE | 2019-08-06 20:00 | NUR ---
RECEIVED PT IN BED V/S AND ASSESSMENT DINE SAME STABLE ,BATES IN PLACE ,IV FLUIDS PATENT G TUBE INFUSING WELL,PM CARE GIVEN MADE COMFORTABLE
[2019-08-07] VITALS: BP_SYST 102
[2019-08-07 02:13] VITALS: BP_SYST 100
[2019-08-07 04:00] VITALS: BP_SYST 105
--- NOTE | 2019-08-07 04:00 | NUR ---
AM CARE GIVEN REPOSITIONED MADE COMFORTABLE NO DISTRESS NOTED AT THIS TIME
[2019-08-07] MEDS: cefTRIAXone 1 GM in D5W 50 ML IV SCH ×2 (10:56→10:57)
[2019-08-07] MEDS: SENNOSIDES 8.6 MG TABLET PO SCH ×2 (10:58→21:18)
--- NOTE | 2019-08-07 11:20 | NUR ---
Discharge Planning: DCP faxed updated clinicals to [facility] (f [phone] p [phone]) with [facility] Services Authorization form, this needs to be okayed before patient can go back to facility. DCP to follow up. Addendum: 08/07/19 at 1551 by Sabina Magaña DP DCP followed up with [facility] (f [phone] p [phone]) Per Uzma there is no open case showing as of now. DCP to follow up
[2019-08-07 16:35] VITALS: BP_SYST 119
[2019-08-07] MEDS: D5/0.45 NS 1,000 ML IV SCH (18:50)
--- NOTE | 2019-08-07 19:15 | NUR ---
OPENING NOTE Late entry due to patient care. Bedside report received from dayshift nurse. Patient received lying in bed, resting, no s/s of acute distress noted. HOB raised. IVF and Gtube infusing well. Campos attached, secured, and draining by gravity. Bed alarm on. Bed is locked and at lowest position. Will continue to monitor.
[2019-08-07 20:00] VITALS: BP_SYST 108
--- NOTE | 2019-08-07 21:00 | NUR ---
ROUNDS Patient asleep. No signs of discomfort noted. Chest rise and fall even bilaterally. Bed alarm on. Will continue to monitor.
[2019-08-07] MEDS: NORMAL SALINE 5 ML DISP.SYRIN IVF SCH (21:19)
--- NOTE | 2019-08-07 23:00 | NUR ---
ROUNDS Patient in bed sleeping at this time. No s/s of acute distress noted. GTUBE and IVF infusing well. Campos draining by gravity. Bed alarm on. Will continue to monitor.
--- NOTE | 2019-08-08 01:00 | NUR ---
ROUNDS Patient in bed asleep. No signs of discomfort noted. CHest rise and fall even bilaterally. HOB raised. Bed alarm on. Will continue to monitor.
[2019-08-08] MEDS: D5/0.45 NS 1,000 ML IV SCH (02:10)
[2019-08-08 02:13] VITALS: BP_SYST 123
--- NOTE | 2019-08-08 04:00 | NUR ---
ROUNDS Patient in bed, sleeping at this time. No signs of discomfort noted. HOB raised. Breathing even and unlabored. IVF and GTUBE infusing well. Bed alarm on. Will continue to monitor.
[2019-08-08] MEDS: NORMAL SALINE 5 ML DISP.SYRIN IVF SCH (05:41)
--- NOTE | 2019-08-08 06:35 | NUR ---
CLOSING NOTES Patient in bed, sleeping at this time. No s/s of acute distress noted. Breathing even and unlabored, HOB raised. IVF and GTUBE infusing well. IV site shows no signs of infiltration, or infection, patent. Skin warm and dry to touch. Campos attached, secured, and draining by gravity. All needs met throughout shift. Fall and safety precautions maintained throughout shift. Will continue to monitor until patient care is endorsed to oncoming dayshift nurse.
[2019-08-08 09:35] VITALS: BP_SYST 110
[2019-08-08] MEDS: SENNOSIDES 8.6 MG TABLET PO SCH (10:00)
[2019-08-08] MEDS: cefTRIAXone 1 GM in D5W 50 ML IV SCH (10:02)
--- NOTE | 2019-08-08 11:04 | NUR ---
Discharge Planning: DCP spoke to Edwige at [facility] (f [phone] p [phone]) ALICIAP made her aware [employer] was faxed SNF auth no disability case manager assigned. I made Edwige aware patient has a discharge order. She will inquire with [employer] and speak to her DON. DCP to follow up0 Addendum: 08/08/19 at 1558 by Sabina ANDERSEN DCP confirmed with Edwige at [facility] (f [phone] p [phone]) Rm [facility] is where patient will go, transportation arranged with [facility] ([phone]) 5:00pm P/U Auth#[id number]. Patient packet taken to nurse station.
[2019-08-08 12:30] VITALS: BP_SYST 108
[2019-08-08 16:00] VITALS: BP_SYST 115
--- NOTE | 2019-08-08 16:11 | NUR ---
Nutrition F/U RD reviewed pt's current EMR record including diet Hx, physician notes, nursing notes, pertinent labs/meds/procedures, care trends, and care activity. Admission Dx: UTI, stroke PMH: severe dementia, depression, psychosis, Parkinson's, DVT, FTT per physician notes Current Nutrition Support: Jevity 1.5 at 45 ml/hr, Free Water Flush: 100 Q12 via GT x3 days Subjective information: Pt seen resting in bed, aphasic w/ TF infusing as per physician order. No s/s of intolerance per EMR. [employer]rnet TF regimen remains adequate/appropriate. Estimated Energy Expenditure (kcals/day) 7096-3325 kcal/day (25-30 kcal/kg CBW for maintenance) Estimated Protein Required (g/day) 48-60 gm/day (0.8-1 gm/kg CBW for maintenance) Estimated Fluid Required (l/day) 1.5-1.8 L/day (1 ml/kcal/day for maintenance) Problem/Etiology/Signs/Symptoms Inadequate nutritional intakes related to metabolic needs for maintenance as evidenced by no current nutrition support. *no longer applicable Inadequate EN intake r/t current EN infusion rate AEB EN intake meets <50% of est needs. *no longer applicable Expected Outcomes/Goals - Monitor EN intake and tolerance w/ goal of pt meeting at least 75% of estimated nutritional needs, labs trending WNL, normal GI function, and skin integrity/wt maintenance Dietitian Recommendations * Recommend continuing Jevity 1.5 at 45 ml/hr, Free Water Flush: 100 Q12 ml via GT Provides: 1620 kcal/day, 69 gm protein/day, and 1021 ml free water/day Meets: 108% of lower end of estimated caloric needs and 115% of upper end of estimated protein needs Follow Up Moderate Risk: F/U in 3-5 days
--- NOTE | 2019-08-08 16:14 | NUR ---
Dietitian Recommendations * Recommend continuing Jevity 1.5 at 45 ml/hr, Free Water Flush: 100 Q12 ml via GT Provides: 1620 kcal/day, 69 gm protein/day, and 1021 ml free water/day Meets: 108% of lower end of estimated caloric needs and 115% of upper end of estimated protein needs LP, RD Please refer to Nutrition F/U for details.
--- NOTE | 2019-08-08 19:21 | NUR ---
Patient handoff report to [facility] at [facility]. Patient transferred at 1630 with ambulance team. IV catheter 20 and 22 gauge from left leg and left hand removed with intact catheter tips. Patient jefferson catheter discontinued per request of receiving team RN. Aashish Maria RN
== END 2019-08-08 16:30 | DRG 113 ==
LOC: SED 19:04 → SMU 07-25 03:05
PROVIDERS: ADMIT Internal Medicine; ATTEND Internal Medicine
PROC: 0DJ08ZZ Inspection of Upper Intestinal Tract, Via Natural or Artificial Opening Endoscopic (ICD-10-PCS; principal; 2019-08-01 10:45)
PROC: 0DH63UZ Insertion of Feeding Device into Stomach, Percutaneous Approach (ICD-10-PCS; 2019-08-04)
PROC: 0DB68ZX Excision of Stomach, Via Natural or Artificial Opening Endoscopic, Diagnostic (ICD-10-PCS; 2019-08-04)
DX: J06.9 Acute upper respiratory infection, unspecified (principal); G93.40 Encephalopathy, unspecified; R13.10 Dysphagia, unspecified; G20 Parkinson's disease; F02.80 Dementia in other diseases classified elsewhere, unspecified severity, without behavioral disturbance, psychotic disturbance, mood disturbance, and anxiety; N39.0 Urinary tract infection, site not specified; F32.9 Major depressive disorder, single episode, unspecified; J40 Bronchitis, not specified as acute or chronic; K21.9 Gastro-esophageal reflux disease without esophagitis; K29.70 Gastritis, unspecified, without bleeding; R62.7 Adult failure to thrive; Z86.718 Personal history of other venous thrombosis and embolism; Z86.73 Personal history of transient ischemic attack (TIA), and cerebral infarction without residual deficits; Z79.899 Other long term (current) drug therapy; Z79.01 Long term (current) use of anticoagulants; Z68.23 Body mass index [BMI] 23.0-23.9, adult
CPT/HCPCS: 36415; 43235; 43246; 70450-TC; 71045; 80048; 80053; 80076; 81000-TC; 83605; 85025; 85610-TC; 85730-TC; 87040-TC; 87081; 88305; 88312; 88313; 92610-GN; 96360; 96361; 99285; J0690; J0696; J2250; J2704; J3010; J3430; J3480; J7030; J7050; J7060; J7120